=== PATIENT | female | born 1985 | race Caucasian/White ===

== ENCOUNTER 2018-11-13 04:21 | Emergency (ER) | payer MEDICAID ==
[~2018-11-13] VITALS: Wt 81.8 kg
--- NOTE | 2018-11-13 05:45 | ERD ---
ER Documentation Chief Complaint Chief Complaint SWELLING OF BILAT HANDS FROM ABSCESSES R/T IV DRUG USE HPI There is a 33-year-old female presents to emerge department with complaints of bilateral hand swelling. Stated that the swelling has increased in the last 24 hours. Patient admitted that she is a heroin IV user. Stated that Stated that her last heroin use was yesterday. Stated that she has limited range of motion of her left hand. Stated that her left hand is much more swollen or double size as compared to the right hand. Stated that she is right-handed. Also complains of fever and chills at home. LMP: 10/01/2017. G1 1 A0. Denies headache, head injury, loss of consciousness, dizziness, neck pain, neck stiffness, throat pain, difficulty swallowing, difficulty breathing lying flat, shoulder pain, chest pain, back pain, abdominal pain, nausea, vomiting, constipation, diarrhea, urinary symptoms, or possibility being , loss of bowel and bladder control, trauma, injury, falls, difficulty walking due to pain, numbness or tingling sensation, calf pain, recent travel, recent major surgery in the last 3 weeks, calf pain, recent long travel, recent exposure to any illness, recent antibiotic use in the last 3 months, fever, chills, seizures. Past medical history: Surgical history: Social: Denies smoking, use of alcoholic beverages, use of illegal drugs. ROS All systems reviewed and are negative except as per history of present illness. Allergies Allergies: Coded Allergies: No Known Allergy (Unverified , 11/13/18) PMhx/Soc Medical and Surgical Hx: pt denies Medical Hx, pt denies Surgical Hx Hx Alcohol Use: No Hx Substance Use: Yes (heroin, meth) Hx Tobacco Use: No Smoking Status: Current every day smoker Physical Exam Vitals Vital Signs Date Temp Pulse Resp B/P (MAP) Pulse Ox O2 O2 Flow FiO2 Time Delivery Rate 11/13/18 97.9 103 18 128/62 98 04:29 (84) Physical Exam Const: No acute distress Head: Atraumatic Eyes: Normal Conjunctiva ENT: Normal External Ears, Nose and Mouth. Neck: Full range of motion. No meningismus. Resp: Clear to auscultation bilaterally Cardio: Regular rate and rhythm, no murmurs Abd: Soft, non tender, non distended. Normal bowel sounds Skin: No petechiae or rashes Back: No midline or flank tenderness Ext: No cyanosis. Left hand: Noted skin is warm to touch. Swelling noted (has normal size as compared to right hand) that extends to left wrist. Limited range of motion of left fingers. Drug tracking serrano noted. Left radial pulse is within normal limits. Capillary refills of left upper extremity are less than 2 seconds. Right hand: Swelling with redness mild limited range of motion. Drug tracking serrano. Ocular refills to right upper extremity are less than 2 seconds. Right wrist is mildly swollen but has good and full range of motion. Right radial pulses within normal limits. Neur: Awake and alert. No neurological deficit. Psych: Normal Mood and Affect Result Diagram: 11/13/18 0715 Results 24 hrs Laboratory Tests Test 11/13/18 05:56 11/13/18 06:00 11/13/18 07:15 POC Beta HCG, Qualitative NEGATIVE Urine Color RANDOLPH Urine Clarity SLIGHTLY CLOUDY Urine pH 5.0 Urine Specific Alexander 1.029 Urine Ketones NEGATIVE mg/dL Urine Nitrite NEGATIVE mg/dL Urine Bilirubin NEGATIVE mg/dL Urine Urobilinogen 1+ mg/dL Urine Leukocyte Esterase NEGATIVE Bonnie/ul Urine Microscopic RBC 2 /HPF Urine Microscopic WBC 8 /HPF Urine Squamous Epithelial Cells MANY /HPF Urine Bacteria FEW /HPF Urine Mucus FEW /HPF Urine Hemoglobin NEGATIVE mg/dL Urine Glucose NEGATIVE mg/dL Urine Total Protein NEGATIVE mg/dl White Blood Count 12.2 10^3/ul Red Blood Count 3.31 10^6/ul Hemoglobin 9.5 g/dl Hematocrit 29.0 % Mean Corpuscular Volume 87.6 fl Mean Corpuscular Hemoglobin 28.7 pg Mean Corpuscular 32.8 g/dl Hemoglobin Concent Red Cell Distribution Width 11.9 % Platelet Count 358 10^3/UL Mean Platelet Volume 9.2 fl Immature Granulocytes % 0.500 % Neutrophils % 78.2 % Lymphocytes % 12.3 % Monocytes % 7.5 % Eosinophils % 1.3 % Basophils % 0.2 % Nucleated Red Blood Cells % 0.0 /100WBC Immature Granulocytes # 0.060 10^3/ul Neutrophils # 9.5 10^3/ul Lymphocytes # 1.5 10^3/ul Monocytes # 0.9 10^3/ul Eosinophils # 0.2 10^3/ul Basophils # 0.0 10^3/ul Nucleated Red Blood Cells # 0.0 10^3/ul Current Medications Medications Dose Sig/Mitzy Start Time Status Last (Trade) Ordered Route PRN Stop Time Admin Dose Reason Admin Sodium 1,000 ml @ Q1H ONCE 11/13/18 DC 11/13/18 Chloride 1,000 mls/hr IV 06:00 07:08 11/13/18 06:59 Morphine 4 mg ONCE STAT 11/13/18 DC 11/13/18 Sulfate IV 05:52 07:08 (morphine) 11/13/18 05:54 Ondansetron 4 mg ONCE STAT 11/13/18 DC 11/13/18 HCl (Zofran IV 05:52 07:08 Inj) 11/13/18 05:54 Vancomycin 250 ml @ ONCE ONCE 11/13/18 HCl 125 mls/hr IVPB 07:00 11/13/18 08:59 Piperacillin 100 ml @ ONCE ONCE 11/13/18 DC 11/13/18 Sod/ 200 mls/hr IVPB 07:00 07:08 Tazobactam 11/13/18 07:29 Sod Vancomycin 250 ml @ ONCE ONCE 11/13/18 HCl 125 mls/hr IVPB 07:00 11/13/18 08:59 Ceftriaxone 2 gm ONCE ONCE 11/13/18 Cancel Sodium IM 07:00 (Rocephin) 11/13/18 07:01 10 mg ONCE ONCE 11/13/18 DC 11/13/18 Dexamethasone IV 07:00 07:08 (Decadron) 11/13/18 07:01 Ceftriaxone 50 ml @ ONCE ONCE 11/13/18 Sodium 100 mls/hr IVPB 08:00 11/13/18 08:29 Patient: JOSE ALFREDO MARTE : 1985 Age: 33 Sex: F MR #: [id number] DOS: 11/13/18 0536 Ordering MD: DAVY HERNANDEZ NP Location: [facility] Room/Bed: PROCEDURE: US upper extremity Venous. CLINICAL INDICATION: swelling TECHNIQUE: Multiple sonographic images of the the right and left upper extremity venous system was obtained utilizing grayscale, color-flow, compressive sonography and doppler imaging with augmentation. The images were reviewed on a PACS workstation. COMPARISON: None. FINDINGS: There is normal compressibility and flow within the right internal jugular vein, subclavian vein, axillary vein, brachial, basilic, cephalic, radial and ulnar veins. IMPRESSION: No sonographic evidence for venous thrombosis. Procedures/MDM Rapid medical screening was done. Diagnostic tests, initial treatment was ordered including Zosyn and Vancomycin. This case was discussed with my supervising physician, Dr. Kathy Bear who agreed to continue care. Vital signs stable, differential diagnosis include but not limited to: DVT, superficial thrombosis, cellulitis, erysipelas, shingles, abscess. Low suspicion for acute systemic infectious process. Physical examination and clinical presentation consistent most likely with cellulitis of bilateral hands without evidence of abscess formation. During the ED course the patient remained stable, no new complaints. The patient received treatment with IV Rocephin, vancomycin and dexamethasone. Results and clinical impression discussed with the patient who agrees with management. The patient is stable to be treated outpatient and will be discharged home with a Rx for antibiotics, anti-inflammatories and pain medications, some side effects of prescribed medications (headache, rash, nausea, vomiting, diarrhea, drowsiness, habituation, bleeding, hypertension, interactions with other medications) were reviewed. The patient was instructed to follow up with the primary care provider in the next 48h. If symptoms persist, worsen or new symptoms develop, then patient should return to the ED immediately. Instructions explained and given directly by me to the patient and relatives with acknowledgment and demonstrated understanding. Disclaimer: Inadvertent spelling and grammatical errors are likely due to EHR/dictation software use and do not reflect on the overall quality of patient care. Also, please note that the electronic time recorded on this note does not necessarily reflect the actual time of the patient encounter. Departure Diagnosis: Primary Impression: Cellulitis Additional Impression: Bilateral hand swelling Condition: Stable Additional Instructions: Thank you very much for allowing us to participate in your care. Your health and safety is our top priority at [facility]. Call your primary care doctor TOMORROW for an appointment during the next 2-4 days and bring all the information and medications prescribed. Have prescriptions filled and follow precisely the directions on the label. If the symptoms get worse and your provider is unavailable, return to the Emergency Department immediately. DAVY HERNANDEZ Nov 13, 2018 05:45 KATHY BEAR MD Nov 13, 2018 07:51
[2018-11-13] MEDS ORDERED: ONDANSETRON 4 MG INJ IV STA (05:52)
[2018-11-13] MEDS ORDERED: morphine 4 MG/ML VIAL IV STA (05:52)
[2018-11-13] MEDS ORDERED: SOD CHLORIDE 0.9% 1,000 ML IV ONE (06:00)
[2018-11-13] MEDS ORDERED: VANCOMYCIN 1 GM (PMX) 250 ML IVPB ONE ×2 (07:00)
[2018-11-13] MEDS ORDERED: CEFTRIAXONE 2 GM INJ IM ONE (07:00)
[2018-11-13] MEDS ORDERED: PIPER-TAZO 3.375 GM IV (PMX) 100 ML IVPB ONE (07:00)
[2018-11-13] MEDS ORDERED: DEXAMETHASONE 10 MG/ML 1 ML INJ IV ONE (07:00)
[2018-11-13] MEDS ORDERED: SULF1TAB31 PO (07:57)
[2018-11-13] MEDS ORDERED: PRED20TA PO (07:57)
[2018-11-13] MEDS ORDERED: CEPH-443 PO (07:57)
[2018-11-13] MEDS ORDERED: CEFTRIAXONE 2 GM/50 ML (PMX) 50 ML IVPB ONE (08:00)
[2018-11-13 10:09] VITALS: BP 112/61; PULSE 88; RESP 17
== END 2018-11-13 10:11 | disposition home or self-care (01) ==
LOC: FTE 04:21
DX: L03.113 Cellulitis of right upper limb (principal); F17.210 Nicotine dependence, cigarettes, uncomplicated; L03.114 Cellulitis of left upper limb
CPT/HCPCS: 73110; 73130; 80053; 81001; 81003; 81025; 83605; 85025; 87040; 93970; 96365; 96366; 96368; 96375; J0696; J1100; J2270; J2405; J2543; J3370; J7030; Z7502